=== PATIENT | female | born 1945 | race Caucasian/White ===

== ENCOUNTER 2017-11-27 06:59 | Day surgery (SDC) | payer MEDICARE, BC ==
[~2017-11-27 06:59] MED LIST: Lactated Ringers 1,000 ML IV SCH
[2017-11-27] MEDS ORDERED: Citric Acid/Sodium Citrate Solution 30 ML Cup PO ONE (07:36)
[2017-11-27] MEDS ORDERED: Propofol 200 MG/20 ML SDV ONE (07:47)
[2017-11-27] MEDS ORDERED: fentaNYL 100 MCG/2 ML SDV ONE (07:47)
[2017-11-27] MEDS ORDERED: Bupivacaine 0.25%/EPINEPHrine 1:200,000 30 ML SDV ONE (08:35)
[2017-11-27] MEDS ORDERED: Bupivacaine 0.25%/EPINEPHrine 1:200,000 30 ML SDV INJECT ONE ×3 (09:03)
[2017-11-27] MEDS ORDERED: Acetaminophen 500 MG Tab PO PRN (09:39)
[2017-11-27 10:09] VITALS: BP 119/55
--- NOTE | 2017-11-28 07:43 | OR ---
PREOPERATIVE DIAGNOSIS: Left carpal tunnel syndrome. POSTOPERATIVE DIAGNOSIS: Left carpal tunnel syndrome. PROCEDURE PROPOSED: Left carpal tunnel decompression. PROCEDURE DONE: Left carpal tunnel decompression. LANDSCAPE TECHNICIAN: Lashawn. INDICATION: This is an elderly female, bothered with significant left carpal tunnel syndrome symptoms. She has had a previous right-sided decompression done back in the . She comes in now for elective surgery. TECHNIQUE: The patient brought to the operative suite, was given MAC anesthesia per TRANSMISSION OPERATOR and the patient was in the supine position. The left arm was then sterilely prepped and draped. The area was then locally anesthetized using 0.25% Marcaine with epinephrine in the base of the left palm. A vertical incision was then made in the base of the left palm from the first flexion crease distally, approximately 1-1/4 inch in length. Dissection was taken then down through the subcutaneous tissue. The arm had been exsanguinated and the tourniquet inflated to 250 mmHg prior to making an incision. Dissection was then taken down to the transverse carpal ligament, which was then transected throughout its entirety. Freeing up the underlying median nerve. One small bleeder was cauterized and the wound was irrigated. The incision was then closed on the skin level with interrupted vertical mattress stitches of 5-0 Ethilon using 5 stitches. The wound was then dressed with antibiotic ointment and I-pad and a El dressing followed by application of a left wrist splint. The tourniquet was then deflated with a tourniquet time of 13 minutes. She tolerated the entire procedure well, was taken back to recovery in good condition. SCM: 11/27/2017 09:23:25 MODL: 11/27/2017 16:27:53 /[id number]
== END 2017-11-27 10:43 | disposition home or self-care (01) ==
LOC: VM.SDS 06:59
PROVIDERS: ATTEND Surgery
DX: G56.02 Carpal tunnel syndrome, left upper limb (principal); I10 Essential (primary) hypertension; E11.9 Type 2 diabetes mellitus without complications; J45.20 Mild intermittent asthma, uncomplicated; G47.33 Obstructive sleep apnea (adult) (pediatric); E78.00 Pure hypercholesterolemia, unspecified; M81.0 Age-related osteoporosis without current pathological fracture; Z79.4 Long term (current) use of insulin; Z79.899 Other long term (current) drug therapy; Z79.82 Long term (current) use of aspirin; Z88.8 Allergy status to other drugs, medicaments and biological substances; Z86.010 Personal history of colon polyps; Z99.89 Dependence on other enabling machines and devices; Z90.49 Acquired absence of other specified parts of digestive tract; Z87.891 Personal history of nicotine dependence
CPT/HCPCS: 01810; 64721; A9270; J2704; J3010; J7120

== ENCOUNTER 2021-09-23 12:09 | Inpatient (IN) | payer MEDICARE, BC ==
[2021-09-23] MEDS ORDERED: Bisacodyl 5 MG Tab PO PRN (15:35)
[2021-09-23] MEDS ORDERED: Albuterol HFA 18 Gm Inhaler INH PRN (15:35)
[2021-09-23] MEDS: Acetaminophen/HYDROcodone 325-10 MG Tab PO PRN (19:28)
[2021-09-23] MEDS: metFORMIN 500 MG Tab PO SCH (19:28)
[2021-09-23] MEDS: Gabapentin 300 MG Cap PO SCH ×2 (19:30→21:10)
[2021-09-23] MEDS: Formoterol/Mometasone 200-5 MCG 13 GM Inhaler INH SCH (21:08)
[2021-09-23] MEDS: Heparin Sodium 5,000 Units/ML Vial SUBCUT SCH (21:52)
[2021-09-23] MEDS: Acetaminophen 500 MG Tab PO PRN (22:44)
[2021-09-23] MEDS: Melatonin 3 MG Tab PO SCH (22:44)
[2021-09-24] MEDS: Heparin Sodium 5,000 Units/ML Vial SUBCUT SCH ×3 (05:29→21:18)
[2021-09-24] MEDS: Acetaminophen/HYDROcodone 325-10 MG Tab PO PRN ×2 (05:30→16:56)
[2021-09-24] MEDS: metFORMIN 500 MG Tab PO SCH ×2 (10:21→17:31)
[2021-09-24] MEDS: Losartan 50 MG Tab PO SCH (10:21)
[2021-09-24] MEDS: Omeprazole 20 MG Cap.CR PO SCH (10:22)
[2021-09-24] MEDS: Gabapentin 300 MG Cap PO SCH ×3 (10:22→19:19)
[2021-09-24] MEDS: Magnesium Oxide 400 MG Tab PO SCH (10:23)
[2021-09-24] MEDS: Formoterol/Mometasone 200-5 MCG 13 GM Inhaler INH SCH ×2 (10:24→19:18)
[2021-09-24] MEDS: Pravastatin 20 MG Tab PO SCH (14:39)
[2021-09-24] MEDS: Simethicone 80 MG Tab.Chew PO PRN (17:09)
[2021-09-24] MEDS: Melatonin 3 MG Tab PO SCH (19:18)
[2021-09-24] MEDS: Acetaminophen 500 MG Tab PO PRN (21:18)
[2021-09-25] MEDS: Acetaminophen/HYDROcodone 325-10 MG Tab PO PRN ×4 (00:22→20:34)
[2021-09-25] MEDS: Heparin Sodium 5,000 Units/ML Vial SUBCUT SCH ×3 (06:00→21:19)
[2021-09-25] MEDS: Formoterol/Mometasone 200-5 MCG 13 GM Inhaler INH SCH ×2 (08:53→19:30)
[2021-09-25] MEDS: metFORMIN 500 MG Tab PO SCH ×2 (08:54→17:17)
[2021-09-25] MEDS: Omeprazole 20 MG Cap.CR PO SCH (08:55)
[2021-09-25] MEDS: Gabapentin 300 MG Cap PO SCH ×3 (08:55→19:24)
[2021-09-25] MEDS: Losartan 50 MG Tab PO SCH (08:55)
[2021-09-25] MEDS: Magnesium Oxide 400 MG Tab PO SCH (09:06)
[2021-09-25] MEDS: Pravastatin 20 MG Tab PO SCH (13:46)
[2021-09-25] MEDS: Melatonin 3 MG Tab PO SCH (19:24)
[2021-09-26] MEDS: Acetaminophen/HYDROcodone 325-10 MG Tab PO PRN ×3 (05:39→23:24)
[2021-09-26] MEDS: Heparin Sodium 5,000 Units/ML Vial SUBCUT SCH ×3 (05:40→21:00)
[2021-09-26] MEDS: Omeprazole 20 MG Cap.CR PO SCH (06:01)
[2021-09-26 07:27] LABS: ANION GAP 9.3 mmol/L (5-15); CHLORIDE,CL 101 mmol/L (98-107); SODIUM,NA 135 mmol/L (136-145)
[2021-09-26] MEDS: Acetaminophen 500 MG Tab PO PRN (08:34)
[2021-09-26] MEDS: Losartan 50 MG Tab PO SCH (08:34)
[2021-09-26] MEDS: Gabapentin 300 MG Cap PO SCH ×3 (08:34→20:44)
[2021-09-26] MEDS: Formoterol/Mometasone 200-5 MCG 13 GM Inhaler INH SCH ×2 (08:34→20:45)
[2021-09-26] MEDS: metFORMIN 500 MG Tab PO SCH ×2 (08:35→17:17)
[2021-09-26] MEDS: Magnesium Oxide 400 MG Tab PO SCH (08:35)
[2021-09-26] MEDS: Pravastatin 20 MG Tab PO SCH (12:04)
[2021-09-26] MEDS: Simethicone 80 MG Tab.Chew PO PRN (14:09)
[2021-09-26] MEDS: Cyclobenzaprine 10 MG Tab PO PRN (14:09)
[2021-09-26] MEDS: Melatonin 3 MG Tab PO SCH (20:44)
[2021-09-27] MEDS: Cyclobenzaprine 10 MG Tab PO PRN ×2 (02:55→11:50)
[2021-09-27] MEDS: Heparin Sodium 5,000 Units/ML Vial SUBCUT SCH ×3 (06:15→21:13)
[2021-09-27] MEDS: Omeprazole 20 MG Cap.CR PO SCH (06:15)
[2021-09-27] MEDS: Magnesium Oxide 400 MG Tab PO SCH (08:46)
[2021-09-27] MEDS: Gabapentin 300 MG Cap PO SCH ×3 (08:47→21:18)
[2021-09-27] MEDS: Losartan 50 MG Tab PO SCH (08:47)
[2021-09-27] MEDS: Simethicone 80 MG Tab.Chew PO PRN (08:47)
[2021-09-27] MEDS: Acetaminophen/HYDROcodone 325-10 MG Tab PO PRN ×2 (08:47→21:14)
[2021-09-27] MEDS: metFORMIN 500 MG Tab PO SCH ×2 (08:47→17:48)
[2021-09-27] MEDS: Formoterol/Mometasone 200-5 MCG 13 GM Inhaler INH SCH ×2 (08:50→21:16)
[2021-09-27] MEDS: Acetaminophen 500 MG Tab PO PRN ×2 (11:49→17:52)
[2021-09-27] MEDS: Pravastatin 20 MG Tab PO SCH (11:49)
[2021-09-27] MEDS: Melatonin 3 MG Tab PO SCH (21:14)
[2021-09-28] MEDS: Cyclobenzaprine 10 MG Tab PO PRN (02:10)
[2021-09-28] MEDS: Acetaminophen 500 MG Tab PO PRN ×2 (02:11→11:23)
[2021-09-28] MEDS: Omeprazole 20 MG Cap.CR PO SCH (06:05)
[2021-09-28] MEDS: Heparin Sodium 5,000 Units/ML Vial SUBCUT SCH (06:05)
[2021-09-28] MEDS: Acetaminophen/HYDROcodone 325-10 MG Tab PO PRN ×2 (07:49→21:12)
[2021-09-28] MEDS: metFORMIN 500 MG Tab PO SCH ×2 (07:49→18:10)
[2021-09-28] MEDS: Magnesium Oxide 400 MG Tab PO SCH (07:50)
[2021-09-28] MEDS: Simethicone 80 MG Tab.Chew PO PRN (07:50)
[2021-09-28] MEDS: Losartan 50 MG Tab PO SCH (07:50)
[2021-09-28] MEDS: Formoterol/Mometasone 200-5 MCG 13 GM Inhaler INH SCH ×2 (07:50→21:12)
[2021-09-28] MEDS: Gabapentin 300 MG Cap PO SCH ×3 (07:50→21:13)
[2021-09-28] MEDS: Lidocaine 4% 1 each Patch TOP PRN (10:44)
[2021-09-28] MEDS: Pravastatin 20 MG Tab PO SCH (11:23)
[2021-09-28] MEDS: Melatonin 3 MG Tab PO SCH (21:12)
[2021-09-29] MEDS: Cyclobenzaprine 10 MG Tab PO PRN ×2 (02:01→17:03)
[2021-09-29] MEDS: Omeprazole 20 MG Cap.CR PO SCH (06:10)
[2021-09-29] MEDS: Enoxaparin 40 MG/0.4 ML Syringe SUBCUT SCH (06:10)
[2021-09-29] MEDS: Acetaminophen/HYDROcodone 325-10 MG Tab PO PRN ×2 (06:16→19:46)
[2021-09-29] MEDS: metFORMIN 500 MG Tab PO SCH ×2 (07:38→17:02)
[2021-09-29] MEDS: Magnesium Oxide 400 MG Tab PO SCH (07:39)
[2021-09-29] MEDS: Losartan 50 MG Tab PO SCH (07:39)
[2021-09-29] MEDS: Gabapentin 300 MG Cap PO SCH ×3 (07:39→19:45)
[2021-09-29] MEDS: Formoterol/Mometasone 200-5 MCG 13 GM Inhaler INH SCH ×2 (09:31→19:46)
[2021-09-29] MEDS: Pravastatin 20 MG Tab PO SCH (11:52)
[2021-09-29] MEDS: Melatonin 3 MG Tab PO SCH (19:45)
[2021-09-30] MEDS: Enoxaparin 40 MG/0.4 ML Syringe SUBCUT SCH (06:10)
[2021-09-30] MEDS: Omeprazole 20 MG Cap.CR PO SCH (06:10)
[2021-09-30] MEDS: Gabapentin 300 MG Cap PO SCH ×3 (07:45→21:14)
[2021-09-30] MEDS: Magnesium Oxide 400 MG Tab PO SCH (07:45)
[2021-09-30] MEDS: metFORMIN 500 MG Tab PO SCH ×2 (07:45→17:44)
[2021-09-30] MEDS: Losartan 50 MG Tab PO SCH (07:46)
[2021-09-30] MEDS: Formoterol/Mometasone 200-5 MCG 13 GM Inhaler INH SCH ×2 (07:47→21:14)
[2021-09-30] MEDS: Acetaminophen/HYDROcodone 325-10 MG Tab PO PRN ×2 (07:58→21:14)
[2021-09-30] MEDS: Pravastatin 20 MG Tab PO SCH (12:43)
[2021-09-30] MEDS: Acetaminophen 500 MG Tab PO PRN (17:44)
[2021-09-30] MEDS: Melatonin 3 MG Tab PO SCH (21:14)
[2021-10-01] MEDS: Omeprazole 20 MG Cap.CR PO SCH (05:59)
[2021-10-01] MEDS: Enoxaparin 40 MG/0.4 ML Syringe SUBCUT SCH (05:59)
[2021-10-01] MEDS: Losartan 50 MG Tab PO SCH (07:59)
[2021-10-01] MEDS: metFORMIN 500 MG Tab PO SCH ×2 (07:59→18:15)
[2021-10-01] MEDS: Formoterol/Mometasone 200-5 MCG 13 GM Inhaler INH SCH ×2 (07:59→20:32)
[2021-10-01] MEDS: Acetaminophen 500 MG Tab PO PRN ×3 (07:59→21:47)
[2021-10-01] MEDS: Magnesium Oxide 400 MG Tab PO SCH (08:00)
[2021-10-01] MEDS: Gabapentin 300 MG Cap PO SCH ×3 (08:00→20:31)
[2021-10-01] MEDS: Pravastatin 20 MG Tab PO SCH (11:57)
[2021-10-01] MEDS: Melatonin 3 MG Tab PO SCH (20:31)
[2021-10-02] MEDS: Acetaminophen 500 MG Tab PO PRN ×3 (05:53→22:08)
[2021-10-02] MEDS: Enoxaparin 40 MG/0.4 ML Syringe SUBCUT SCH (05:59)
[2021-10-02] MEDS: Omeprazole 20 MG Cap.CR PO SCH (05:59)
[2021-10-02] MEDS: Simethicone 80 MG Tab.Chew PO PRN (07:58)
[2021-10-02] MEDS: Formoterol/Mometasone 200-5 MCG 13 GM Inhaler INH SCH ×2 (08:01→22:11)
[2021-10-02] MEDS: metFORMIN 500 MG Tab PO SCH ×2 (08:01→17:30)
[2021-10-02] MEDS: Magnesium Oxide 400 MG Tab PO SCH (08:02)
[2021-10-02] MEDS: Gabapentin 300 MG Cap PO SCH ×3 (08:02→22:09)
[2021-10-02] MEDS: Losartan 50 MG Tab PO SCH (08:02)
[2021-10-02] MEDS: Ondansetron 4 MG Tab.DIS PO PRN ×2 (10:00→23:31)
[2021-10-02] MEDS: Pravastatin 20 MG Tab PO SCH (11:45)
[2021-10-02] MEDS: Melatonin 3 MG Tab PO SCH (22:09)
[2021-10-02] MEDS ORDERED: GI Cocktail Oral Solution 30 ML PO ONE (23:57)
[2021-10-03] MEDS: Enoxaparin 40 MG/0.4 ML Syringe SUBCUT SCH (06:29)
[2021-10-03] MEDS: Omeprazole 20 MG Cap.CR PO SCH (06:29)
[2021-10-03 06:48] LABS: CHLORIDE,CL 101 mmol/L (98-107); SODIUM,NA 136 mmol/L (136-145)
[2021-10-03 06:53] LABS: ANION GAP 10.1 mmol/L (5-15)
[2021-10-03] MEDS: Losartan 50 MG Tab PO SCH (08:59)
[2021-10-03] MEDS: Formoterol/Mometasone 200-5 MCG 13 GM Inhaler INH SCH ×2 (08:59→19:54)
[2021-10-03] MEDS: metFORMIN 500 MG Tab PO SCH ×2 (08:59→17:20)
[2021-10-03] MEDS: Magnesium Oxide 400 MG Tab PO SCH (09:00)
[2021-10-03] MEDS: Gabapentin 300 MG Cap PO SCH ×3 (09:00→19:53)
[2021-10-03] MEDS: Pravastatin 20 MG Tab PO SCH (11:42)
[2021-10-03] MEDS: Acetaminophen 500 MG Tab PO PRN ×2 (11:43→19:53)
[2021-10-03] MEDS: Melatonin 3 MG Tab PO SCH (19:53)
[2021-10-03] MEDS: Acetaminophen/HYDROcodone 325-10 MG Tab PO PRN (23:51)
[2021-10-04] MEDS: Enoxaparin 40 MG/0.4 ML Syringe SUBCUT SCH (06:20)
[2021-10-04] MEDS: Omeprazole 20 MG Cap.CR PO SCH (06:20)
[2021-10-04] MEDS: Formoterol/Mometasone 200-5 MCG 13 GM Inhaler INH SCH ×2 (08:23→19:55)
[2021-10-04] MEDS: Magnesium Oxide 400 MG Tab PO SCH (08:23)
[2021-10-04] MEDS: Losartan 50 MG Tab PO SCH (08:23)
[2021-10-04] MEDS: metFORMIN 500 MG Tab PO SCH ×2 (08:23→17:40)
[2021-10-04] MEDS: Acetaminophen 500 MG Tab PO PRN ×3 (08:23→23:46)
[2021-10-04] MEDS: Gabapentin 300 MG Cap PO SCH ×3 (08:23→19:55)
[2021-10-04] MEDS: Pravastatin 20 MG Tab PO SCH (12:14)
[2021-10-04] MEDS: Melatonin 3 MG Tab PO SCH (19:55)
[2021-10-05] MEDS: Formoterol/Mometasone 200-5 MCG 13 GM Inhaler INH SCH ×2 (09:37→20:21)
[2021-10-05] MEDS: metFORMIN 500 MG Tab PO SCH ×2 (09:38→17:20)
[2021-10-05] MEDS: Acetaminophen 500 MG Tab PO PRN ×2 (09:39→20:19)
[2021-10-05] MEDS: Losartan 50 MG Tab PO SCH (09:39)
[2021-10-05] MEDS: Enoxaparin 40 MG/0.4 ML Syringe SUBCUT SCH (09:40)
[2021-10-05] MEDS: Magnesium Oxide 400 MG Tab PO SCH (09:40)
[2021-10-05] MEDS: Gabapentin 300 MG Cap PO SCH ×3 (09:40→20:19)
[2021-10-05] MEDS: Omeprazole 20 MG Cap.CR PO SCH (09:41)
[2021-10-05] MEDS: Pravastatin 20 MG Tab PO SCH (13:23)
[2021-10-05] MEDS: Melatonin 3 MG Tab PO SCH (20:20)
[2021-10-06] MEDS: Acetaminophen 500 MG Tab PO PRN ×2 (04:38→11:32)
[2021-10-06] MEDS: Enoxaparin 40 MG/0.4 ML Syringe SUBCUT SCH (06:02)
[2021-10-06] MEDS: Omeprazole 20 MG Cap.CR PO SCH (06:03)
[2021-10-06] MEDS: Formoterol/Mometasone 200-5 MCG 13 GM Inhaler INH SCH ×2 (07:55→20:50)
[2021-10-06] MEDS: Losartan 50 MG Tab PO SCH (07:55)
[2021-10-06] MEDS: Gabapentin 300 MG Cap PO SCH ×3 (07:56→20:50)
[2021-10-06] MEDS: metFORMIN 500 MG Tab PO SCH ×2 (07:56→18:02)
[2021-10-06] MEDS: Magnesium Oxide 400 MG Tab PO SCH (07:56)
[2021-10-06] MEDS: Pravastatin 20 MG Tab PO SCH (11:31)
[2021-10-06] MEDS: Acetaminophen/HYDROcodone 325-10 MG Tab PO PRN (15:54)
[2021-10-06] MEDS: Melatonin 3 MG Tab PO SCH (20:49)
[2021-10-06] MEDS: Acetaminophen 500 MG Tab PO SCH (20:50)
[2021-10-07] MEDS: Cyclobenzaprine 10 MG Tab PO PRN ×2 (01:39→11:41)
[2021-10-07] MEDS: Acetaminophen/HYDROcodone 325-10 MG Tab PO PRN (06:04)
[2021-10-07] MEDS: Omeprazole 20 MG Cap.CR PO SCH (06:05)
[2021-10-07] MEDS: Enoxaparin 40 MG/0.4 ML Syringe SUBCUT SCH (06:05)
[2021-10-07 06:30] VITALS: BP 135/62; PULSE 82
[2021-10-07] MEDS: Formoterol/Mometasone 200-5 MCG 13 GM Inhaler INH SCH (08:05)
[2021-10-07] MEDS: Losartan 50 MG Tab PO SCH (08:06)
[2021-10-07] MEDS: metFORMIN 500 MG Tab PO SCH (08:06)
[2021-10-07] MEDS: Acetaminophen 500 MG Tab PO SCH (08:06)
[2021-10-07] MEDS: Lidocaine 4% 1 each Patch TOP PRN (08:07)
[2021-10-07] MEDS: Gabapentin 300 MG Cap PO SCH ×2 (08:07→11:41)
[2021-10-07] MEDS: Magnesium Oxide 400 MG Tab PO SCH (08:07)
[2021-10-07] MEDS: Pravastatin 20 MG Tab PO SCH (11:40)
== END 2021-10-07 15:05 | disposition home health service (06) | DRG 948 ==
LOC: VM.MS 15:11
PROVIDERS: ADMIT Internal Medicine; ATTEND Internal Medicine
DX: R53.81 Other malaise (principal); R33.9 Retention of urine, unspecified; I10 Essential (primary) hypertension; E66.9 Obesity, unspecified; K59.09 Other constipation; K21.9 Gastro-esophageal reflux disease without esophagitis; M48.04 Spinal stenosis, thoracic region; D50.0 Iron deficiency anemia secondary to blood loss (chronic); E11.9 Type 2 diabetes mellitus without complications; M81.0 Age-related osteoporosis without current pathological fracture; F10.20 Alcohol dependence, uncomplicated; M62.830 Muscle spasm of back; J45.20 Mild intermittent asthma, uncomplicated; G47.33 Obstructive sleep apnea (adult) (pediatric); N39.41 Urge incontinence; Z79.51 Long term (current) use of inhaled steroids; Z88.8 Allergy status to other drugs, medicaments and biological substances; Z79.899 Other long term (current) drug therapy; Z98.41 Cataract extraction status, right eye; Z98.42 Cataract extraction status, left eye; Z90.49 Acquired absence of other specified parts of digestive tract; Z89.411 Acquired absence of right great toe
CPT/HCPCS: 36415; 51702; 51798; 80048; 82947; 85025; 97110-GP; 97116-GP; 97163-GP; 97165-GO; 97530-GP; 97535-GO; A9270-GY; J1644; J1650

== ENCOUNTER 2023-10-05 06:35 | Day surgery (SDC) | payer BC, MEDICARE, OTHER ==
[2023-10-05] MEDS: Lactated Ringers 1,000 ML IV SCH (07:04)
[2023-10-05] MEDS ORDERED: fentaNYL 100 MCG/2 ML SDV ONE (07:53)
[2023-10-05] MEDS ORDERED: Propofol 200 MG/20 ML SDV ONE (07:53)
[2023-10-05 09:19] VITALS: BP 141/48; PULSE 79
== END 2023-10-05 10:42 | disposition home or self-care (01) ==
LOC: VM.SDS 06:35
PROVIDERS: ATTEND Student in an Organized Health Care Education/Training Program
DX: D12.8 Benign neoplasm of rectum (principal); I10 Essential (primary) hypertension; E78.5 Hyperlipidemia, unspecified; E11.9 Type 2 diabetes mellitus without complications; K21.9 Gastro-esophageal reflux disease without esophagitis; E66.9 Obesity, unspecified; G47.33 Obstructive sleep apnea (adult) (pediatric); J45.909 Unspecified asthma, uncomplicated; E83.42 Hypomagnesemia; D12.6 Benign neoplasm of colon, unspecified; Z79.899 Other long term (current) drug therapy; Z88.8 Allergy status to other drugs, medicaments and biological substances; Z87.891 Personal history of nicotine dependence; Z68.41 Body mass index [BMI] 40.0-44.9, adult; F32.A Depression, unspecified
CPT/HCPCS: 00811; 82947; J2704; J3010; J7120